=== PATIENT | male | born 1960 | race Caucasian/White ===

== ENCOUNTER 2016-03-29 08:24 | Emergency (ER) | payer MEDICARE ==
--- NOTE | 2016-03-29 09:15 | EKG REPORT ---
SEVERITY:- NORMAL ECG - SINUS RHYTHM : Confirmed by: Hemant De La O 29-Mar-2016 09:14:32
[2016-03-29 09:34] LABS: ABSOLUTE EOSINOPHILS # (AUTO) 0.2 10^3/uL (0.0-0.6); ABSOLUTE LYMPHOCYTES (AUTO) 1.1 10^3/uL (0.5-4.7); ABSOLUTE MONOCYTES (AUTO) 0.6 10^3/uL (0.1-1.4); ABSOLUTE NEUT (AUTO) 6.1 10^3/uL (1.7-8.2); BASOPHILS % (AUTO) 0.3 % (0-2); HEMATOCRIT 40.4 % (37.9-51.0); HEMOGLOBIN 13.4 g/dL (13.5-17.0); HGB HCT DIFFERENCE -0.2; LYMPHOCYTES % (AUTO) 14.2 % (13-45); MEAN CORPUSCULAR HEMOGLOBIN 30.7 pg (27.0-33.4); MEAN CORPUSCULAR HGB CONC 33.2 g/dL (32.0-36.0); MEAN CORPUSCULAR VOLUME 92 fl (80-97); MONOCYTES % (AUTO) 7.9 % (3-13); RED BLOOD COUNT 4.38 10^6/uL (4.35-5.55); RED CELL DISTRIBUTION WIDTH 13.1 % (11.5-14.0); SEGMENTED NEUTROPHILS % (AUTO) 75.6 % (42-78)
[2016-03-29 09:45] LABS: ANION GAP 12 (5-19); BLOOD UREA NITROGEN 18 mg/dL (7-20); CALCIUM 9.3 mg/dL (8.4-10.2); CARBON DIOXIDE 27 mmol/L (22-30); CHLORIDE 103 mmol/L (98-107); CREATININE RESULT 0.81 mg/dL (0.52-1.25); GLUCOSE 94 mg/dL (75-110); POTASSIUM 4.2 mmol/L (3.6-5.0); SODIUM 142.4 mmol/L (137-145)
--- NOTE | 2016-03-29 09:52 | ER Document Report ---
ED Cardiac <BUBBA OBREGON - Last Filed: 03/29/16 14:30> - General Mode of Arrival: Ambulatory Information source: Patient TRAVEL OUTSIDE OF THE [place] IN LAST 30 DAYS: No - HPI Patient complains to provider of: Chest pain Was the onset of pain: Sudden Quality of pain: Stabbing Chest pain radiation location: Back Associated symptoms: Shortness of breath Similar symptoms previously: Yes <ZEYNEP LORA - Last Filed: 03/29/16 16:14> - General Chief Complaint: Chest Pain Stated Complaint: CHEST PAIN Notes: Patient is a 55 year old male that presents to the emergency department today with complaints of chest pain x2-3 weeks. Patient states it has been intermittent for these few weeks and when it sets in, it lasts for a few hours at a time.Patient states he was "coon hunting" the other day, he bent over and had a stabbing chest pain with associated shortness of breath. Patient states again this morning at 0400 he was woken up with chest pain. Patient states it hurts to breathe. Patient's last cardiac catherization was more than five years ago. (ZEYNEP LORA) - Related Data Allergies/Adverse Reactions: No Known Allergies Allergy (Verified 03/29/16 08:36) Past Medical History - General Information source: Patient - Social History Smoking Status: Current Every Day Smoker Cigarette use (# per day): Yes Frequency of alcohol use: None Drug Abuse: None Lives with: Family Family History: Reviewed & Not Pertinent, CAD - Mother had an CA in her 50s. Father had an CA in his 60s., Other - Both parents had COPD Pulmonary Medical History: Reports: Hx Asthma GI Medical History: Reports: Hx Gastroesophageal Reflux Disease Musculoskeltal Medical History: Reports Hx Arthritis - osteo Psychiatric Medical History: Reports: Hx Depression Past Surgical History: Reports: Hx Cholecystectomy - Immunizations Hx Diphtheria, Pertussis, Tetanus Vaccination: No <ZEYNEP LORA - Last Filed: 03/29/16 16:14> Review of Systems - Review of Systems Constitutional: No symptoms reported EENT: No symptoms reported Cardiovascular: See HPI, Chest pain Respiratory: See HPI, Hurts to breathe, Short of breath Gastrointestinal: No symptoms reported Genitourinary: No symptoms reported Male Genitourinary: No symptoms reported Musculoskeletal: No symptoms reported Skin: No symptoms reported Hematologic/Lymphatic: No symptoms reported Neurological/Psychological: No symptoms reported -: Yes All other systems reviewed and negative <ZEYNEP LORA - Last Filed: 03/29/16 16:14> Physical Exam - General General appearance: Appears well In distress: None - HEENT Head: Normocephalic, Atraumatic Eyes: Normal Extraocular movements intact: Yes - Respiratory Respiratory status: No respiratory distress Chest status: Nontender Breath sounds: Normal - Cardiovascular Rhythm: Regular Heart sounds: Normal auscultation Murmur: No - Abdominal Inspection: Normal Distension: No distension Bowel sounds: Normal Tenderness: Nontender - Extremities General upper extremity: Normal inspection, Nontender. No: Edema General lower extremity: Normal inspection, Nontender. No: Edema - Neurological Neuro grossly intact: Yes Cognition: Normal Orientation: AAOx4 - Psychological Associated symptoms: Normal affect, Normal mood - Skin Skin Temperature: Warm Skin Moisture: Dry Skin Color: Normal <ZEYNEP LORA - Last Filed: 03/29/16 16:14> - Vital signs Vitals: Temp Pulse Resp BP Pulse Ox 97.5 F 95 18 141/93 H 100 03/29/16 08:32 03/29/16 08:32 03/29/16 08:32 03/29/16 08:32 03/29/16 08:32 (BUBBA OBREGON) (ZEYNEP LORA) Course - Laboratory Result Diagrams: 03/29/16 08:57 03/29/16 08:57 <BUBBA OBREGON - Last Filed: 03/29/16 14:30> - Laboratory Result Diagrams: 03/29/16 08:57 03/29/16 08:57 <ZEYNEP LORA - Last Filed: 03/29/16 16:14> - Re-evaluation Re-evalutation: 03/29/16 14:02 I personally performed the services described in the documentation, reviewed and edited the documentation which was dictated to my scribe in my presence, and it accurately records my words and actions. Patient presents emergency Department chief: Chest pain for 3 weeks. Patient states the pain has been there on a daily basis lasting several hours and then going away. He says the last 3 days the pain is been constant reproducible to deep breath sharp and stabbing in nature and feels like someone stabbed him with a knife. He said he got a little short of breath with it when he was cooing on the other day. He denies any exertional shortness of breath and she angina or shortness of breath on ED arrival. He has had he states 2 heart catheters in [place] and what he says is a stress test 6 months ago which were negative. 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 On physical examination his vital signs are stable he's afebrile not tachycardic not hypoxic or tachypneic. EKG 2 with sharp stabbing pain sinus rhythm at [address] segment elevation or depression. CT of the chest abdomen and pelvis with IV contrast showed questionable aortic root dilatation but no aneurysm dissection or secondary findings. Also no pulmonary emboli present. Laboratory evaluation with several days of constant chest pain is negative troponin. His tox screen is positive for narcotics and marijuana. Gave him a shot of Toradol that he wanted something for narcotics. I explained to him that this isn't the type of pain that we would treat with narcotic pain medication. He has chronic pain medication chronically at home says that he took extra on it helps when he took it explained to him I cannot give him additional narcotic pain medication for this. At this moment in time I do not feel this is an acute CA or unstable angina warranting admission however he is to return immediately for increasing worsening or new symptoms and would recommend one to 2 day follow-up with primary care physician for possible stress test evaluation. This was verbally discussed with him given discharge instructions and reasons for ED return sooner (BUBBA OBREGON) - Vital Signs Vital signs: Temp Pulse Resp BP Pulse Ox 98.1 F 95 15 119/90 H 99 03/29/16 14:01 03/29/16 08:32 03/29/16 14:01 03/29/16 14:01 03/29/16 13:01 (BUBBA OBREGON) (ZEYNEP LORA) - Laboratory Laboratory results interpreted by me: 03/29/16 08:57 Hgb 13.4 L (BUBBA OBREGON) (ZEYNEP LORA) Scribe Documentation - Scribe Written by Sergo:: Sergo Zacarias, [id number] (03/29/2016) acting as scribe for :: Dima <ZEYNEP LORA - Last Filed: 03/29/16 16:14>
[2016-03-29 10:08] LABS: CREATINE KINASE MB 0.33 ng/mL (<4.55)
[2016-03-29 10:08] LABS: URINE BARBITURATES SCREEN NEGATIVE; URINE METHADONE SCREEN NEGATIVE; URINE PHENCYCLIDINE SCREEN NEGATIVE
[2016-03-29 10:10] LABS: TROPONIN I < 0.012 ng/mL
[2016-03-29] MEDS ORDERED: KETOROLAC TROMETHAMINE 60 MG/2 ML SDV IM ONE (10:30)
[2016-03-29] MEDS ORDERED: ASPIRIN 81 MG TABLET, CHEWABLE PO ONE (13:01)
[2016-03-29 14:29] VITALS: BP 119/90
--- NOTE | 2016-03-29 22:03 | EKG REPORT ---
SEVERITY:- NORMAL ECG - SINUS RHYTHM : Confirmed by: Hemant De La O 29-Mar-2016 22:02:51
--- NOTE | 2016-04-09 10:59 | ER Document Report ---
Doctor's Note Notes: 04/09/16 10:59 diagnosis 1. chest pain nonspecific
== END 2016-03-29 14:25 | disposition home or self-care (01) ==
LOC: ER 08:24
DX: R07.9 Chest pain, unspecified (principal); F17.210 Nicotine dependence, cigarettes, uncomplicated
CPT/HCPCS: 93005; 99285; 96372; 36415; 82553; 85025; 80048; 84484; 83880; 71260; 74177; 93010; G0479; A9270; J1885; 80307

== ENCOUNTER → 2017-06-13 | Outpatient (CLI) | payer MEDICARE ==
--- NOTE | 2017-06-13 11:42 | RADIOLOGY REPORT (SQ) ---
EXAM DESCRIPTION: HIP RIGHT AP/LATERAL COMPLETED DATE/TIME: 06/13/2017 10:06 am REASON FOR STUDY: TROCHANTERIC BURSITIS, RIGHT HIP M70.61 TROCHANTERIC BURSITIS, RIGHT HIP M25.561 PAIN IN RIGHT KNEE M25.562 PAIN IN LEFT KNEE COMPARISON: None. NUMBER OF VIEWS: Two views. TECHNIQUE: AP pelvis and additional frog-leg view of the right hip. LIMITATIONS: None. FINDINGS: MINERALIZATION: Normal. RIGHT HIP: No fracture or dislocation. No worrisome bone lesions. LEFT HIP: No fracture or dislocation. No worrisome bone lesions. PUBIS AND ISCHIUM: No fracture. PELVIS: No fracture. SACRUM: No fracture or dislocation. No worrisome bone lesions. LOWER LUMBAR SPINE: No fracture or dislocation. No worrisome bone lesions. No significant disc disea se. SOFT TISSUES: No findings. OTHER: No other significant finding. IMPRESSION: NEGATIVE STUDY OF THE RIGHT HIP. NO RADIOGRAPHIC EVIDENCE OF ACUTE INJURY. TECHNICAL DOCUMENTATION: JOB ID: [id number] [employer]- All Rights Reserved Reading location - IP/workstation name: [email or web address]
--- NOTE | 2017-06-13 11:46 | RADIOLOGY REPORT (SQ) ---
EXAM DESCRIPTION: KNEE BILATERAL 1-2 VIEWS COMPLETED DATE/TIME: 06/13/2017 10:06 am REASON FOR STUDY: PAIN IN RIGHT KNEE,PAIN IN LEFT KNEE M70.61 TROCHANTERIC BURSITIS, RIGHT HIP M25. 561 PAIN IN RIGHT KNEE M25.562 PAIN IN LEFT KNEE COMPARISON: None. NUMBER OF VIEWS: Two views of each knee TECHNIQUE: AP and lateral bilateral knees. LIMITATIONS: None. FINDINGS: MINERALIZATION: Normal. RIGHT KNEE BONES: No acute fracture. No worrisome bone lesions. MEDIAL COMPARTMENT: No significant osteophytes. No joint space narrowing. No chondrocalcinosis. LATERAL COMPARTMENT: No significant osteophytes. No joint space narrowing. No chondrocalcinosis. LEFT KNEE BONES: No acute fracture. No worrisome bone lesions. MEDIAL COMPARTMENT: No significant osteophytes. No joint space narrowing. No chondrocalcinosis. LATERAL COMPARTMENT: No significant osteophytes. No joint space narrowing. No chondrocalcinosis. IMPRESSION: No significant findings. No acute fracture or dislocation. No significant degenerative changes. TECHNICAL DOCUMENTATION: JOB ID: [id number] [employer]- All Rights Reserved Reading location - IP/workstation name: [email or web address]
--- NOTE | 2017-06-13 12:03 | RADIOLOGY REPORT (SQ) ---
EXAM DESCRIPTION: C SP 6 OR MORE VIEWS COMPLETED DATE/TIME: 06/13/2017 10:06 am REASON FOR STUDY: CERVICALGIA M70.61 TROCHANTERIC BURSITIS, RIGHT HIP M25.561 PAIN IN RIGHT KNEE M 25.562 PAIN IN LEFT KNEE COMPARISON: MRI of the cervical spine and plain films of the cervical spine dated 04/24/2017 NUMBER OF VIEWS: Seven views. TECHNIQUE: AP, lateral, obliques, flexion, extension, and odontoid radiographic images acquired of t he cervical spine. LIMITATIONS: None. FINDINGS: MINERALIZATION: Normal. ALIGNMENT: There is very minimal retrolisthesis of C5 in relation to C6 FLEXION/EXTENSION: No instability. VERTEBRAE: Vertebral bodies of normal height. DISCS: No significant osteophytes or sclerosis. Disc height maintained. Disc spacer is now identifie d at the C6-C7 level. FORAMINA: No osteophytes or foraminal narrowing. LATERAL AND POSTERIOR ELEMENTS: Facets, lateral masses, and spinous processes without significant fin dings. HARDWARE: Disc spacer is identified at the C6-C7 level P SOFT TISSUES: No masses or calcifications. Lung apices clear. OTHER: No other significant finding. IMPRESSION: Postsurgical changes as noted above. There is very minimal retrolisthesis of C5 in rela tion to C 6. Other findings as noted above NO INSTABILITY ON FLEXION/EXTENSION. TECHNICAL DOCUMENTATION: JOB ID: [id number] [employer]- All Rights Reserved Reading location - IP/workstation name: [email or web address]
== END ==
LOC: OD 09:30
PROVIDERS: ATTEND Pain Medicine Pain Medicine
DX: M70.61 Trochanteric bursitis, right hip (principal); M25.561 Pain in right knee; M25.562 Pain in left knee; M54.2 Cervicalgia
CPT/HCPCS: 72052

== ENCOUNTER 2017-12-12 15:21 | Emergency (ER) | payer MEDICARE ==
[2017-12-12 17:16] VITALS: BP 132/85
[2017-12-12] MEDS ORDERED: ONDANSETRON HCL INJ/PF 4 MG/2 ML SDV IV ONE (17:16)
[2017-12-12] MEDS ORDERED: NORMAL SALINE 1000 ML 1,000 ML IV ONE (17:16)
--- NOTE | 2017-12-12 17:18 | ER Document Report ---
ED Medical Screen (RME) - General Chief Complaint: General Weakness Stated Complaint: POSSIBLE DEHYDRATION Time Seen by Provider: 12/12/17 17:16 Mode of Arrival: Ambulatory Information source: Patient Notes: Patient presents complaining of poor intake for the past week. Patient states that he has been working out in the heat and not drinking much. Patient states that he also has not been eating very much. Patient denies any abdominal pain. Patient denies any fever. Patient does report nausea vomiting and diarrhea. Patient vomited 2 and had diarrhea 2 today. Patient is concerned about dehydration. I have greeted and performed a rapid initial assessment of this patient. A comprehensive ED assessment and evaluation of the patient, analysis of test results and completion of the medical decision making process will be conducted by additional ED providers. TRAVEL OUTSIDE OF THE [place] IN LAST 30 DAYS: No - Related Data Allergies/Adverse Reactions: seafood Allergy (Uncoded 12/12/17 17:12) Past Medical History - Social History Chew tobacco use (# tins/day): No Frequency of alcohol use: Occasional Drug Abuse: None - Past Medical History Cardiac Medical History: Denies: Hx Coronary Artery Disease, Hx Heart Attack, Hx Hypertension Pulmonary Medical History: Reports: Hx Asthma Denies: Hx Bronchitis, Hx COPD, Hx Pneumonia Neurological Medical History: Denies: Hx Cerebrovascular Accident, Hx Seizures Renal/ Medical History: Denies: Hx Peritoneal Dialysis GI Medical History: Reports: Hx Gastroesophageal Reflux Disease Musculoskeltal Medical History: Reports Hx Arthritis - osteo Psychiatric Medical History: Reports: Hx Depression Past Surgical History: Reports: Hx Cardiac Catheterization, Hx Cholecystectomy - Immunizations Hx Diphtheria, Pertussis, Tetanus Vaccination: No Physical Exam - Vital signs Vitals: Temp Pulse Resp BP Pulse Ox 97.8 F 74 12 132/85 H 100 12/12/17 16:15 12/12/17 16:15 12/12/17 16:15 12/12/17 16:15 12/12/17 16:15 - Abdominal Inspection: Normal Tenderness: Nontender Course - Vital Signs Vital signs: Temp Pulse Resp BP Pulse Ox 97.8 F 74 12 132/85 H 100 12/12/17 16:15 12/12/17 16:15 12/12/17 16:15 12/12/17 16:15 12/12/17 16:15 Doctor's Discharge - Discharge Referrals: JOSE NEVILLE MD [Primary Care Provider] - Follow up as needed
== END 2017-12-12 18:50 | disposition left against medical advice (07) ==
LOC: ER 15:21
DX: R53.1 Weakness (principal); R11.2 Nausea with vomiting, unspecified; R19.7 Diarrhea, unspecified
CPT/HCPCS: 99281

== ENCOUNTER 2018-11-15 10:44 | Emergency (ER) | payer MEDICARE ==
[2018-11-15] MEDS ORDERED: KETOROLAC TROMETHAMINE INJ/PF 30 MG/1 ML SDV IV ONE (12:05)
[2018-11-15 12:24] LABS: ABSOLUTE EOSINOPHILS # (AUTO) 0.1 10^3/uL (0.0-0.6); ABSOLUTE LYMPHOCYTES (AUTO) 1.7 10^3/uL (0.5-4.7); ABSOLUTE MONOCYTES (AUTO) 0.4 10^3/uL (0.1-1.4); ABSOLUTE NEUT (AUTO) 4.2 10^3/uL (1.7-8.2); BASOPHILS % (AUTO) 0.5 % (0-2); EOSINOPHILS % (AUTO) 1.4 % (0-6); HEMATOCRIT 41.1 % (37.9-51.0); HEMOGLOBIN 13.8 g/dL (13.5-17.0); LYMPHOCYTES % (AUTO) 26.3 % (13-45); MEAN CORPUSCULAR HEMOGLOBIN 31.5 pg (27.0-33.4); MEAN CORPUSCULAR HGB CONC 33.5 g/dL (32.0-36.0); MEAN CORPUSCULAR VOLUME 94 fl (80-97); MONOCYTES % (AUTO) 5.8 % (3-13); PLATELET COUNT 246 10^3/uL (150-450); RED BLOOD COUNT 4.38 10^6/uL (4.35-5.55); RED CELL DISTRIBUTION WIDTH 13.4 % (11.5-14.0); TOTAL CELLS COUNTED % (AUTO) 100 %; WHITE BLOOD COUNT 6.4 10^3/uL (4.0-10.5)
--- NOTE | 2018-11-15 12:33 | RADIOLOGY REPORT (SQ) ---
EXAM DESCRIPTION: CT HEAD WITHOUT COMPLETED DATE/TIME: 11/15/2018 12:25 pm REASON FOR STUDY: fernandes COMPARISON: 06/17/2015 TECHNIQUE: Axial images acquired through the brain without intravenous contrast. Images reviewed wi th bone, brain and subdural windows. Additional sagittal and coronal reconstructions were generated. Images stored on PACS. All CT scanners at this facility use dose modulation, iterative reconstruction, and/or weight based d osing when appropriate to reduce radiation dose to as low as reasonably achievable (ALARA). [facility]: Dose Right [facility]: CareDose [facility]: Dose Right [facility]: Teradose 4D [facility]: Rollad RADIATION DOSE: CT Rad equipment meets quality standard of care and radiation dose reduction techniq ues were employed. CTDIvol: 48.6 mGy. DLP: 904 mGy-cm. mGy. LIMITATIONS: None. FINDINGS: VENTRICLES: Normal size and contour. CEREBRUM: No masses. No hemorrhage. No midline shift. No evidence for acute infarction. Normal gra y/white matter differentiation. No areas of low density in the white matter. CEREBELLUM: No masses. No hemorrhage. No alteration of density. No evidence for acute infarction. EXTRAAXIAL SPACES: No fluid collections. No masses. ORBITS AND GLOBE: No intra- or extraconal masses. Normal contour of globe without masses. CALVARIUM: No fracture. PARANASAL SINUSES: No fluid or mucosal thickening. SOFT TISSUES: No mass or hematoma. OTHER: No other significant finding. IMPRESSION: NORMAL BRAIN CT WITHOUT CONTRAST. EVIDENCE OF ACUTE STROKE: NO. COMMENT: Quality ID # [id number]: Final reports with documentation of one or more dose reduction techniques (e.g., Automated exposure control, adjustment of the mA and/or kV according to patient size, use of iterative reconstruction technique) TECHNICAL DOCUMENTATION: JOB ID: [id number] [employer]- All Rights Reserved Reading location - IP/workstation name: [email or web address] LICENSE OF [facility]
[2018-11-15 12:42] LABS: ALBUMIN 4.5 g/dL (3.5-5.0); ALKALINE PHOSPHATASE 42 U/L (38-126); ANION GAP 9 (5-19); ASPARTATE AMINO TRANSFERASE 21 U/L (17-59); BILIRUBIN,DIRECT 0.3 mg/dL (0.0-0.4); BILIRUBIN,TOTAL 0.9 mg/dL (0.2-1.3); BLOOD UREA NITROGEN 14 mg/dL (7-20); CALCIUM 9.4 mg/dL (8.4-10.2); CARBON DIOXIDE 28 mmol/L (22-30); CHLORIDE 100 mmol/L (98-107); GLUCOSE 104 mg/dL (75-110); POTASSIUM 4.4 mmol/L (3.6-5.0); TOTAL PROTEIN 7.4 g/dL (6.3-8.2)
--- NOTE | 2018-11-15 13:32 | ER Document Report ---
ED General - General Chief Complaint: Headache Stated Complaint: HEADACHE Time Seen by Provider: 11/15/18 11:49 Primary Care Provider: NIK OBREGON NP [Primary Care Provider] - Follow up as needed Mode of Arrival: Ambulatory Information source: Patient TRAVEL OUTSIDE OF THE [place] IN LAST 30 DAYS: No - HPI Notes: Patient presents complaint of headache. States that it feels like a vice gripping both sides of his head. It is moderate to severe. It does radiate throughout his head. Nothing made is made it better or worse. Says he has had no trauma. Says he did have a tick removed from his right side approximately 5 days ago. He said the headache started approximately 2 days after that. No rash. Some nausea but no vomiting. No fevers. The pain has been intermittent. He denies a previous history of headaches. - Related Data Allergies/Adverse Reactions: seafood Allergy (Uncoded 11/15/18 10:45) Past Medical History - General Information source: Patient - Social History Smoking Status: Former Smoker Frequency of alcohol use: None Drug Abuse: None Family History: Reviewed & Not Pertinent, CAD, Other Patient has suicidal ideation: No Patient has homicidal ideation: No - Past Medical History Cardiac Medical History: Denies: Hx Coronary Artery Disease, Hx Heart Attack, Hx Hypertension Pulmonary Medical History: Reports: Hx Asthma Denies: Hx Bronchitis, Hx COPD, Hx Pneumonia Neurological Medical History: Denies: Hx Cerebrovascular Accident, Hx Seizures Renal/ Medical History: Denies: Hx Peritoneal Dialysis GI Medical History: Reports: Hx Gastroesophageal Reflux Disease Musculoskeletal Medical History: Reports Hx Arthritis - osteo Psychiatric Medical History: Reports: Hx Depression Past Surgical History: Reports: Hx Cardiac Catheterization, Hx Cholecystectomy, Hx Orthopedic Surgery - neck, carpal tunnel - Immunizations Hx Diphtheria, Pertussis, Tetanus Vaccination: No Review of Systems - Review of Systems Constitutional: denies: Chills, Fever Cardiovascular: denies: Chest pain, Dyspnea Respiratory: denies: Cough, Short of breath -: Yes All other systems reviewed and negative Physical Exam - Vital signs Vitals: Temp Pulse Resp BP Pulse Ox 98.1 F 91 16 140/86 H 97 11/15/18 10:48 11/15/18 10:48 11/15/18 10:48 11/15/18 10:48 11/15/18 10:48 Interpretation: Normal - General General appearance: Appears well, Alert - HEENT Head: Normocephalic, Atraumatic Eyes: Normal Pupils: PERRL Neck: Normal. No: Meningismus - Respiratory Respiratory status: No respiratory distress Chest status: Nontender Breath sounds: Normal Chest palpation: Normal - Cardiovascular Rhythm: Regular Heart sounds: Normal auscultation Murmur: No - Abdominal Inspection: Normal Distension: No distension Bowel sounds: Normal Tenderness: Nontender Organomegaly: No organomegaly - Back Back: Normal, Nontender - Extremities General upper extremity: Normal inspection, Nontender, Normal color, Normal ROM, Normal temperature General lower extremity: Normal inspection, Nontender, Normal color, Normal ROM, Normal temperature, Normal weight bearing. 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 He has no meningismus or signs of meningitis. Vitals are stable. Laboratories are unremarkable. Head CT is also unremarkable. His neurological exam is normal. He does have a recent history of a tick bite. I will cover the patient with doxycycline for possible [place] spotted fever or other tickborne infections. His presentation does not seem consistent with a sentinel hemorrhage. - Vital Signs Vital signs: Temp Pulse Resp BP Pulse Ox 98.1 F 91 16 140/86 H 97 11/15/18 10:48 11/15/18 10:48 11/15/18 10:48 11/15/18 10:48 11/15/18 10:48 - Laboratory Result Diagrams: 11/15/18 11:32 11/15/18 11:32 Laboratory results interpreted by me: 11/15/18 11:32 Sodium 136.6 L - Diagnostic Test Radiology reviewed: Image reviewed, Reports reviewed Radiology results interpreted by me: 11/15/18 13:[address] 11/15/18 12:03 IMPRESSION: NORMAL BRAIN CT WITHOUT CONTRAST. EVIDENCE OF ACUTE STROKE: NO. Discharge - Discharge Clinical Impression: Tick bite Qualifiers: Encounter type: initial encounter Qualified Code(s): W57.XXXA - Bitten or stung by nonvenomous insect and other nonvenomous arthropods, initial encounter Headache Qualifiers: Headache type: unspecified Headache chronicity pattern: acute headache Intractability: intractable Qualified Code(s): R51 - Headache Condition: Stable Disposition: HOME, SELF-CARE Instructions: Headache ([facility]) Additional Instructions: Please call your family doctor as soon as possible to arrange follow-up Prescriptions: Doxycycline Hyclate 100 mg PO BID 14 Days #28 capsule Tramadol HCl [Ultram] 50 mg PO Q6 PRN 3 Days #12 tablet PRN Reason: Referrals: NIK OBREGON NP [Primary Care Provider] - Follow up in 3-5 days
[2018-11-15 14:45] VITALS: BP 134/78
== END 2018-11-15 14:22 | disposition home or self-care (01) ==
LOC: ER 10:44
DX: R51 Headache (principal); T14.8XXA Other injury of unspecified body region, initial encounter; W57.XXXA Bitten or stung by nonvenomous insect and other nonvenomous arthropods, initial encounter; J45.909 Unspecified asthma, uncomplicated; Z87.891 Personal history of nicotine dependence; Z91.013 Allergy to seafood
CPT/HCPCS: 36415; 85025; 80053; 86757 ×2; 70450; J1885; 99284

== ENCOUNTER 2018-11-20 13:14 | Observation (INO) | payer MEDICARE ==
[2018-11-20] MEDS ORDERED: NORMAL SALINE 1000 ML 1,000 ML IV ONE (13:16)
[2018-11-20] MEDS ORDERED: DOXYCYCLINE HYCLATE INJ 100 MG VIAL IV ONE (13:16)
--- NOTE | 2018-11-20 13:22 | ER Document Report ---
ED Medical Screen (RME) - General Stated Complaint: HEADACHE Time Seen by Provider: 11/20/18 13:15 Primary Care Provider: NIK OBREGON NP [Primary Care Provider] - Follow up as needed TRAVEL OUTSIDE OF THE [place] IN LAST 30 DAYS: No - HPI Notes: 11/20/18 13:42 58-year-old male to the emergency department with complaints of persistent headache, body aches, weakness, chest pain. He was seen last week for headache and tested for tickborne illness and empirically placed on doxycycline. His results were reviewed today it was found that he did have [place] spotted fever. He was called and patient states that he had not been doing well and so was urged to come back to the emergency department. He states that he has had subjective fevers, chills. He states last night he had episode of midsternal chest pain that was pretty severe but resolved on its own but then again he had another episode this morning. He has been taking the doxycycline that was written for him but he states that it is not helped. This would be the second time that he had [place] spotted fever. He did have a tick bite approximately 1-1/2 weeks ago to his right chest wall. It was removed and he did not have a rash at that time. He still does not have a rash. He states that his headache is in the back of his head and he has neck pain with it. He states that he has had surgery on his neck before that he is not really sure if his neck range of motion is significantly reduced and normal. Dr. Cabrera may be aware patient's impending arrival and asked that go ahead and order CBC, CMP, lactic acid, blood cultures, fluids, IV doxycycline. Given his history of chest pain and shortness of breath we will also add EKG chest x-ray and cardiac enzymes. I performed a medical screening exam on this patient. I have placed initial orders and will have main side colleague further evaluate patient and manage. On my exam patient appears chronically ill and is thin. He does not appear to have dann nuchal rigidity although he does have decreased range of motion in flexion. He does not appear toxic. Patient is aware of the plan and agrees. - Related Data Allergies/Adverse Reactions: No Known Drug Allergies Allergy (Verified 11/20/18 13:16) seafood Allergy (Uncoded 11/20/18 13:16) Past Medical History - Past Medical History Cardiac Medical History: Denies: Hx Coronary Artery Disease, Hx Heart Attack, Hx Hypertension Pulmonary Medical History: Reports: Hx Asthma Denies: Hx Bronchitis, Hx COPD, Hx Pneumonia Neurological Medical History: Denies: Hx Cerebrovascular Accident, Hx Seizures Renal/ Medical History: Denies: Hx Peritoneal Dialysis GI Medical History: Reports: Hx Gastroesophageal Reflux Disease Musculoskeltal Medical History: Reports Hx Arthritis - osteo Psychiatric Medical History: Reports: Hx Depression Past Surgical History: Reports: Hx Cardiac Catheterization, Hx Cholecystectomy, Hx Orthopedic Surgery - neck, carpal tunnel - Immunizations Hx Diphtheria, Pertussis, Tetanus Vaccination: No Physical Exam - Vital signs Vitals: Temp Pulse Resp BP Pulse Ox 98.1 F 69 16 147/73 H 99 11/20/18 13:17 11/20/18 13:17 11/20/18 13:17 11/20/18 13:17 11/20/18 13:17 Course - Vital Signs Vital signs: Temp Pulse Resp BP Pulse Ox 98.1 F 69 16 147/73 H 99 11/20/18 13:17 11/20/18 13:17 11/20/18 13:17 11/20/18 13:17 11/20/18 13:17 Doctor's Discharge - Discharge Referrals: NIK OBREGON NP [Primary Care Provider] - Follow up as needed
[2018-11-20 14:03] LABS: APPEARANCE,URINE CLEAR; BILIRUBIN,URINE NEGATIVE (NEGATIVE); COLOR,URINE YELLOW; GLUCOSE, URINE NEGATIVE (NEGATIVE); KETONES,URINE NEGATIVE (NEGATIVE); LEUKOCYTE ESTERASE,URINE NEGATIVE (NEGATIVE); NITRITE,URINE NEGATIVE (NEGATIVE); PROTEIN,URINE NEGATIVE (NEGATIVE); URINE SPECIFIC GRAVITY 1.028; UROBILINOGEN,URINE NEGATIVE mg/dL (<2.0)
[2018-11-20] MEDS ORDERED: ONDANSETRON HCL INJ/PF 4 MG/2 ML SDV IV ONE (14:04)
[2018-11-20] MEDS ORDERED: MORPHINE SULFATE 10 MG/ML INJ IV ONE (14:04)
--- NOTE | 2018-11-20 14:35 | ER Document Report ---
ED General - General Chief Complaint: Headache >24 hrs old Stated Complaint: HEADACHE Time Seen by Provider: 11/20/18 13:15 Primary Care Provider: NIK OBREGON NP [Primary Care Provider] - Follow up as needed Mode of Arrival: Ambulatory Information source: Patient TRAVEL OUTSIDE OF THE [place] IN LAST 30 DAYS: No - HPI Notes: Patient presents complaining of headache. It is bilateral and throbbing. It is constant and severe. Is worse with movement and better with rest. It does radiate across his head and into his neck. He is also had persistent nausea and generalized weakness. He states this is been going on for a little over 1 week. Patient was seen here approximately 1 week ago and at that time he had a presumed diagnosis of [place] spotted fever. He was started on doxycycline orally. He states he has taken it every day since then without missing a dose. He states there is been no change in his headache and that he feels weaker than when he started taking it. In the meantime his [place] spotted fever laboratories have come back positive. - Related Data Allergies/Adverse Reactions: No Known Drug Allergies Allergy (Verified 11/20/18 13:16) seafood Allergy (Uncoded 11/20/18 13:16) Past Medical History - General Information source: Patient - Social History Smoking Status: Current Every Day Smoker Frequency of alcohol use: None Drug Abuse: None Family History: Reviewed & Not Pertinent, CAD, Other Patient has suicidal ideation: No Patient has homicidal ideation: No - Past Medical History Cardiac Medical History: Denies: Hx Coronary Artery Disease, Hx Heart Attack, Hx Hypertension Pulmonary Medical History: Reports: Hx Asthma Denies: Hx Bronchitis, Hx COPD, Hx Pneumonia Neurological Medical History: Denies: Hx Cerebrovascular Accident, Hx Seizures Renal/ Medical History: Denies: Hx Peritoneal Dialysis GI Medical History: Reports: Hx Gastroesophageal Reflux Disease Musculoskeletal Medical History: Reports Hx Arthritis - osteo Psychiatric Medical History: Reports: Hx Depression Past Surgical History: Reports: Hx Cardiac Catheterization, Hx Cholecystectomy, Hx Orthopedic Surgery - neck, carpal tunnel - Immunizations Hx Diphtheria, Pertussis, Tetanus Vaccination: No Review of Systems - Review of Systems Constitutional: Malaise, Weakness Cardiovascular: Chest pain. denies: Dyspnea Respiratory: denies: Cough, Short of breath Gastrointestinal: Nausea, Poor appetite -: Yes All other systems reviewed and negative Physical Exam - Vital signs Vitals: Temp Pulse Resp BP Pulse Ox 98.1 F 69 16 147/73 H 99 11/20/18 13:17 11/20/18 13:17 11/20/18 13:17 11/20/18 13:17 11/20/18 13:17 Interpretation: Normal - General General appearance: Appears well, Alert - HEENT Head: Normocephalic, Atraumatic Eyes: Normal Pupils: PERRL - Respiratory Respiratory status: No respiratory distress Chest status: Nontender Breath sounds: Normal Chest palpation: Normal - Cardiovascular Rhythm: Regular Heart sounds: Normal auscultation Murmur: No - Abdominal Inspection: Normal Distension: No distension Bowel sounds: Normal Tenderness: Nontender Organomegaly: No organomegaly - Back Back: Normal, Nontender - Extremities General upper extremity: Normal inspection, Nontender, Normal color, Normal ROM, Normal temperature General lower extremity: Normal inspection, Nontender, Normal color, Normal ROM, Normal temperature, Normal weight bearing. No: Abigail's sign - Neurological Neuro grossly intact: Yes Cognition: Normal Orientation: AAOx4 Mobile Coma Scale Eye Opening: Spontaneous Uma Coma Scale Verbal: Oriented Mobile Coma Scale Motor: Obeys Commands Mobile Coma Scale Total: 15 Speech: Normal Motor strength normal: LUE, RUE, LLE, RLE Sensory: Normal - Psychological Associated symptoms: Normal affect, Normal mood - Skin Skin Temperature: Warm Skin Moisture: Dry Skin Color: Normal Course - Re-evaluation Re-evalutation: 11/20/18 16:43 Patient reevaluated at this time. He still complains of headache although states it is improved. Patient did have a positive antibody titer for [place] spotted fever. He does not have any meningismus. His vital signs are stable. Laboratories are otherwise unremarkable. Patient has not been improving with 6 days of outpatient doxycycline. He will be admitted for IV antibiotic therapy. - Vital Signs Vital signs: Temp Pulse Resp BP Pulse Ox 98.1 F 69 16 147/73 H 99 11/20/18 13:17 11/20/18 13:17 11/20/18 13:17 11/20/18 13:17 11/20/18 13:17 - Laboratory Result Diagrams: 11/20/18 14:40 11/20/18 14:40 Laboratory results interpreted by me: 11/20/18 11/20/18 14:40 14:40 RBC 4.03 L Hgb 12.6 L Hct 37.7 L Alkaline Phosphatase 31 L - Diagnostic Test Radiology reviewed: Image reviewed, Reports reviewed Radiology results interpreted by me: 11/20/18 16:43 Chest X-Ray 11/20/18 13:40 IMPRESSION: Hyperexpansion. No acute findings in the chest. - EKG Interpretation by Me EKG shows normal: Sinus rhythm Rate: Normal - 63 Rhythm: NSR [place]/QRS: No: Right axis deviation, Left axis deviation Discharge - Discharge Clinical Impression: [place] spotted fever Condition: Fair Disposition: ADMITTED INPATIENT Admitting Provider: day Unit Admitted: Medical Floor
--- NOTE | 2018-11-20 15:01 | RADIOLOGY REPORT (SQ) ---
EXAM DESCRIPTION: CHEST SINGLE VIEW COMPLETED DATE/TIME: 11/20/2018 2:52 pm REASON FOR STUDY: chest pain COMPARISON: 07/10/2015 NUMBER OF VIEWS: One view. TECHNIQUE: Single frontal radiographic image of the chest acquired. LIMITATIONS: None. FINDINGS: LUNGS AND PLEURA: Bilateral apical pleural thickening right greater than left. No consoli dation or effusions. Mild hyperexpansion. MEDIASTINUM AND HILAR STRUCTURES: Normal in appearance. HEART AND VASCULAR STRUCTURES: Normal in appearance. BONES: No acute findings. OTHER: No other significant finding. IMPRESSION: Hyperexpansion. No acute findings in the chest. TECHNICAL DOCUMENTATION: JOB ID: [id number] [employer]- All Rights Reserved Reading location - IP/workstation name: [email or web address]
[2018-11-20 15:13] LABS: ABSOLUTE LYMPHOCYTES (AUTO) 1.6 10^3/uL (0.5-4.7); ABSOLUTE MONOCYTES (AUTO) 0.3 10^3/uL (0.1-1.4); ABSOLUTE NEUT (AUTO) 3.5 10^3/uL (1.7-8.2); BASOPHILS % (AUTO) 0.3 % (0-2); EOSINOPHILS % (AUTO) 0.6 % (0-6); HEMATOCRIT 37.7 % (37.9-51.0); HEMOGLOBIN 12.6 g/dL (13.5-17.0); LYMPHOCYTES % (AUTO) 28.7 % (13-45); MEAN CORPUSCULAR HEMOGLOBIN 31.3 pg (27.0-33.4); MEAN CORPUSCULAR HGB CONC 33.5 g/dL (32.0-36.0); MEAN CORPUSCULAR VOLUME 94 fl (80-97); MONOCYTES % (AUTO) 5.6 % (3-13); PLATELET COUNT 219 10^3/uL (150-450); RED BLOOD COUNT 4.03 10^6/uL (4.35-5.55); RED CELL DISTRIBUTION WIDTH 13.6 % (11.5-14.0); SEGMENTED NEUTROPHILS % (AUTO) 64.8 % (42-78); TOTAL CELLS COUNTED % (AUTO) 100 %; WHITE BLOOD COUNT 5.5 10^3/uL (4.0-10.5)
[2018-11-20 15:39] LABS: ALBUMIN 4.6 g/dL (3.5-5.0); ALKALINE PHOSPHATASE 31 U/L (38-126); ANION GAP 7 (5-19); ASPARTATE AMINO TRANSFERASE 27 U/L (17-59); BILIRUBIN,DIRECT 0.3 mg/dL (0.0-0.4); BILIRUBIN,TOTAL 0.6 mg/dL (0.2-1.3); BLOOD UREA NITROGEN 18 mg/dL (7-20); CALCIUM 9.4 mg/dL (8.4-10.2); CARBON DIOXIDE 29 mmol/L (22-30); CHLORIDE 102 mmol/L (98-107); GLUCOSE 91 mg/dL (75-110); POTASSIUM 4.5 mmol/L (3.6-5.0); TOTAL PROTEIN 7.3 g/dL (6.3-8.2)
--- NOTE | 2018-11-20 17:27 | EKG REPORT ---
SEVERITY:- NORMAL ECG - SINUS RHYTHM : Confirmed by: Garth Ng MD 20-Nov-2018 17:27:27
--- NOTE | 2018-11-20 18:13 | PDOC H&P ---
History of Present Illness Admission Date/PCP: 11/20/18 16:59 NIK OBREGON NP 58-year-old male comes in with diagnosis of [place] spotted fever persistent headache. She was in the emergency room 5 days ago on 821 and at that time had positive [place] spotted fever IgG and a Rickettsia titer of 1-256. P atient was given p.o. doxycycline 100 mg twice daily. Patient's headache has persisted and when he called the emergency room they told him to come back in today for persistent headache. Patient has also had some nausea and vomiting but patient states that he is keeping his medicine down and not vomiting it up. A very important part of this history is the fact that 4 days prior to being here in the emergency room on the , he had an epidural steroid injection for cervical disc disease. Patient was having such a bad headache that he called the anesthesiologist but never got a call back. On the he came to the emergency room after having pulled a tick off of his back that time had a bad headache. Patient has had 2 lumbar laminectomies 1 cervical laminectomy and normally takes Vicodin for his postoperative pain. He says the Vicodin is not helping this headache. He does admit however that when he was here on the his headache was a 10 out of 10 but now he says his headache is a 5 out of 10. History of Present Illness: MARIANNE SHANNON is a 58 year old male Past Medical History Cardiac Medical History: Denies: Coronary Artery Disease, Myocardial Infarction, Hypertension Pulmonary Medical History: Reports: Asthma Denies: Bronchitis, Chronic Obstructive Pulmonary Disease (COPD), Pneumonia Neurological Medical History: Reports: Other - 2 lumbar laminectomies 1 cervical laminectomy Denies: Seizures GI Medical History: Reports: Gastroesophageal Reflux Disease Musculoskeltal Medical History: Reports: Arthritis - osteo Psychiatric Medical History: Reports: Depression Hematology: Denies: Anemia Past Surgical History Past Surgical History: Reports: Cardiac Catheterization, Cholecystectomy, Orthopedic Surgery - neck, carpal tunnel Social History Smoking Status: Current Every Day Smoker Frequency of Alcohol Use: None Hx Recreational Drug Use: No Drugs: None Hx Prescription Drug Abuse: No - Advance Directive Resuscitation Status: Full Code Family History Family History: Reviewed & Not Pertinent, CAD, Other Parental Family History Reviewed: No Children Family History Reviewed: No Sibling(s) Family History Reviewed.: No Medication/Allergy Home Medications: Baclofen [Baclofen 10 mg Tablet] 10 mg PO Q8HP PRN 11/20/18 Hydrocodone Bit/Acetaminophen [Hydrocodon-Acetaminophn 10-325] 1 tab PO 5XDP PRN 11/20/18 Ondansetron HCl [Zofran 4 mg Tablet] 4 mg PO DAILYP PRN 11/20/18 Oxycodone HCl/Acetaminophen [Endocet 10-325 mg Tablet] 1 tab PO Q6HP PRN 11/20/18 Tamsulosin HCl [Flomax 0.4 mg Cap.sr] 0.4 mg PO DAILY 11/20/18 Allergies/Adverse Reactions: No Known Drug Allergies Allergy (Verified 11/20/18 13:16) seafood Allergy (Uncoded 11/20/18 13:16) Review of Systems Constitutional: PRESENT: chills, headache(s), weight loss. ABSENT: fever(s), weight gain Respiratory: ABSENT: cough, hemoptysis Gastrointestinal: ABSENT: abdominal pain, constipation, diarrhea, hematemesis, hematochezia, nausea, vomiting Neurological: PRESENT: other - Headache starts in the occipital region goes to the vertex. He exhibits no nuchal rigidity. He denies photophobia. Physical Exam Vital Signs: Temp Pulse Resp BP Pulse Ox 98.0 F 76 18 153/80 H 99 11/20/18 17:23 11/20/18 17:23 11/20/18 17:23 11/20/18 17:23 11/20/18 17:23 Intake & Output 11/19/18 11/20/18 11/21/18 06:59 06:59 06:59 Intake Total 183 Balance 183 Weight 52 kg General appearance: PRESENT: no acute distress, other - Present Head exam: PRESENT: atraumatic, normocephalic Eye exam: PRESENT: conjunctiva pink, EOMI, PERRLA. ABSENT: scleral icterus Neck exam: PRESENT: other - Patient is able to turn his head from side to side patient is able to hyper flex and hyperextend his cervical spine. He does have some limited range of motion but this is because of surgery. ABSENT: carotid bruit, JVD, lymphadenopathy, thyromegaly Cardiovascular exam: PRESENT: RRR. ABSENT: diastolic murmur, rubs, systolic murmur GI/Abdominal exam: PRESENT: normal bowel sounds, soft. ABSENT: distended, guarding, mass, organolmegaly, rebound, tenderness Musculoskeletal exam: PRESENT: other - She does have a well-healed lumbar laminectomy scar from about L2-S1 Neurological exam: PRESENT: alert, awake, oriented to person, oriented to place, oriented to time, oriented to situation, CN II-XII grossly intact. ABSENT: motor sensory deficit Psychiatric exam: PRESENT: appropriate affect, normal mood. ABSENT: homicidal ideation, suicidal ideation Results Laboratory Results: 11/20/18 14:40 11/20/18 14:40 11/20/18 11/20/18 11/20/18 13:47 14:40 14:40 WBC 5.5 RBC 4.03 L Hgb 12.6 L Hct 37.7 L MCV 94 MCH 31.3 MCHC 33.5 RDW 13.6 Plt Count 219 Seg Neutrophils % 64.8 Sodium 137.8 Potassium 4.5 Chloride 102 Carbon Dioxide 29 Anion Gap 7 BUN 18 Creatinine 0.72 Est GFR ( Amer) > 60 Glucose 91 Lactic Acid Calcium 9.4 Total Bilirubin 0.6 AST 27 Alkaline Phosphatase 31 L Total Protein 7.3 Albumin 4.6 Urine Color YELLOW Urine Appearance CLEAR Urine pH 5.0 Ur Specific [place] 1.028 Urine Protein NEGATIVE Urine Glucose (UA) NEGATIVE Urine Ketones NEGATIVE Urine Blood NEGATIVE Urine Nitrite NEGATIVE Ur Leukocyte Esterase NEGATIVE Urine WBC (Auto) 1 Urine RBC (Auto) 1 11/20/18 14:40 WBC RBC Hgb Hct MCV MCH MCHC RDW Plt Count Seg Neutrophils % Sodium Potassium Chloride Carbon Dioxide Anion Gap BUN Creatinine Est GFR ( Amer) Glucose Lactic Acid 0.9 Calcium Total Bilirubin AST Alkaline Phosphatase Total Protein Albumin Urine Color Urine Appearance Urine pH Ur Specific [place] Urine Protein Urine Glucose (UA) Urine Ketones Urine Blood Urine Nitrite Ur Leukocyte Esterase Urine WBC (Auto) Urine RBC (Auto) 11/20/18 14:40 Troponin I < 0.012 Impressions: Chest X-Ray 11/20/18 13:40 IMPRESSION: Hyperexpansion. No acute findings in the chest. Assessment and Plan - Diagnosis (1) Spinal puncture headache Is this a current diagnosis for this admission?: Yes Plan: Patient had an epidural cervical injection 5 days coming to the emergency room the first time patient states that he tried calling the anesthesiologist who did the epidural out the headache but never got up with him. Patient states he is worse when he is up and about (2) [place] spotted fever Is this a current diagnosis for this admission?: Yes Plan: Patient definitely has [place] spotted fever with a positive IgG positive Rickettsia IgG antibody 1-256. Patient was put on p.o. doxycycline 100 mg twice daily on the .. Patient denies having fever but he has had chills patient denies ever having a rash. Patient did pull a tick off of his back about the same day he came into the emergency room. 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 Patient normally does not have headaches. Initially the patient describes headache as the top of his head in the back of his head and it was a 10 out of 10. He now describes a headache as a 5 out of 10 (4) Tick bite Qualifiers: Encounter type: initial encounter Qualified Code(s): W57.XXXA - Bitten or stung by nonvenomous insect and other nonvenomous arthropods, initial encounter Is this a current diagnosis for this admission?: Yes - Time Time Spent with patient: 25-34 minutes - I have called infectious disease in [place], and spoke to Dr. Mcgowan. We had a long conversation about treatment and care. I did tell her that I had not seen the patient prior to talking to her. She said if there is any suspicion of meningitis that the patient should be tapped. She said the headache could be from the [place] spotted fever or it could be coming from meningitis unrelated to the [place] spotted fever. She said she would be glad to help with the patient failed to improve her we needed further consultation. After talking to the patient getting history that he had just had an epidural injection 5 days before he presented here I think that part of his headache or all of his headache may be coming from the potential spinal leak from the epidural injection. Patient does not look septic or toxic patient does not look like he has meningitis. Therefore I am going to just treat him with IV doxy follow his labs if he fails to improve or worsens would recommend lumbar puncture. The other possibility is that if he fails to improve a blood patch being performed in the next 48 hours. One thing complicating matters although not drastically is that he has had a laminectomy in the lumbar region x2 which would create a lot of scar tissue if one was to do the LP. I explained all this to the patient is in agreement to be admitted strict bedrest flat no higher than 30 degrees, I use morphine IV for his head ache, IV fluids, and continue with IV doxycycline
[2018-11-20] MEDS ORDERED: ACETAMINOPHEN 325 MG TABLET PO PRN (18:15)
[2018-11-20] MEDS ORDERED: ONDANSETRON 4 MG TAB.RAPDIS PO PRN (18:15)
[2018-11-20 18:37] LABS: INTERNATIONAL RATION (INR) 0.97; PROTHROMBIN TIME 12.9 SEC (11.4-15.4)
[2018-11-20] MEDS: MORPHINE SULFATE 10 MG/ML INJ IV PRN (20:36)
[2018-11-20] MEDS: NORMAL SALINE 1000 ML 1,000 ML IV PRN (20:38)
[2018-11-20] MEDS: DOXYCYCLINE HYCLATE 100 MG in DEXTROSE 5%-WATER 250 ML IV SCH (22:07)
[2018-11-20] MEDS: FAMOTIDINE 20 MG TABLET PO SCH (22:33)
[2018-11-20] MEDS: ENOXAPARIN SODIUM INJ 40 MG/0.4 ML DISP.SYRIN SUBCUT SCH (22:33)
[2018-11-20] MEDS ORDERED: TAMSULOSIN HCL 0.4 MG CAP.SR.24H PO ONE (23:30)
[2018-11-21] MEDS: MORPHINE SULFATE 10 MG/ML INJ IV PRN ×4 (01:19→20:11)
[2018-11-21] MEDS: ZOLPIDEM TARTRATE 5 MG TABLET PO PRN ×2 (01:20→21:19)
[2018-11-21 05:27] LABS: ABSOLUTE EOSINOPHILS # (AUTO) 0.1 10^3/uL (0.0-0.6); ABSOLUTE LYMPHOCYTES (AUTO) 2.3 10^3/uL (0.5-4.7); ABSOLUTE MONOCYTES (AUTO) 0.4 10^3/uL (0.1-1.4); ABSOLUTE NEUT (AUTO) 3.4 10^3/uL (1.7-8.2); BASOPHILS % (AUTO) 0.3 % (0-2); HEMATOCRIT 33.3 % (37.9-51.0); HEMOGLOBIN 11.3 g/dL (13.5-17.0); LYMPHOCYTES % (AUTO) 37.2 % (13-45); MEAN CORPUSCULAR HEMOGLOBIN 31.7 pg (27.0-33.4); MEAN CORPUSCULAR HGB CONC 33.9 g/dL (32.0-36.0); MEAN CORPUSCULAR VOLUME 93 fl (80-97); MONOCYTES % (AUTO) 6.3 % (3-13); PLATELET COUNT 188 10^3/uL (150-450); RED BLOOD COUNT 3.57 10^6/uL (4.35-5.55); RED CELL DISTRIBUTION WIDTH 13.3 % (11.5-14.0); SEGMENTED NEUTROPHILS % (AUTO) 55.2 % (42-78); TOTAL CELLS COUNTED % (AUTO) 100 %; WHITE BLOOD COUNT 6.2 10^3/uL (4.0-10.5)
[2018-11-21 05:48] LABS: BLOOD UREA NITROGEN 11 mg/dL (7-20); CALCIUM 8.5 mg/dL (8.4-10.2); GLUCOSE 84 mg/dL (75-110); PHOSPHORUS 3.7 mg/dL (2.5-4.5); POTASSIUM 4.4 mmol/L (3.6-5.0)
[2018-11-21 05:53] LABS: ANION GAP 5 (5-19); CARBON DIOXIDE 27 mmol/L (22-30); CHLORIDE 106 mmol/L (98-107)
[2018-11-21] MEDS: NORMAL SALINE 1000 ML 1,000 ML IV PRN ×3 (06:41→21:21)
[2018-11-21] MEDS: DOCUSATE SODIUM 100 MG CAPSULE PO SCH (09:28)
[2018-11-21] MEDS: FAMOTIDINE 20 MG TABLET PO SCH ×2 (09:34→21:16)
[2018-11-21] MEDS: DOXYCYCLINE HYCLATE 100 MG in DEXTROSE 5%-WATER 250 ML IV SCH ×2 (09:34→21:16)
[2018-11-21] MEDS: ENOXAPARIN SODIUM INJ 40 MG/0.4 ML DISP.SYRIN SUBCUT SCH (09:36)
[2018-11-21] MEDS: ONDANSETRON HCL INJ/PF 4 MG/2 ML SDV IV PRN ×2 (09:36→11:38)
[2018-11-21] MEDS: KETOROLAC TROMETHAMINE INJ/PF 30 MG/1 ML SDV IV SCH ×2 (12:06→17:10)
--- NOTE | 2018-11-21 14:47 | PDOC PROGRESS REPORT ---
Subjective Progress Note for:: 11/21/18 Subjective:: No adverse events overnight. He says his chief complaint is his headache. He says he feels like he is not getting any better. He says if it was not for the headache he would feel fine. We gave him some Toradol and he says it has not really done much for him. He says that the other medications he was getting for his headache were not really helping him either. He is been afebrile. He does not have any neck tightness or stiffness. No photophobia. Reason For Visit: [place] SPOTTED FEVER, HEADACHE, SPINAL TAP Physical Exam Vital Signs: Temp Pulse Resp BP Pulse Ox 98.4 F 67 16 133/76 H 96 11/21/18 07:35 11/21/18 07:35 11/21/18 07:35 11/21/18 07:35 11/21/18 07:35 Intake & Output 11/20/18 11/21/18 11/22/18 06:59 06:59 06:59 Intake Total 2550 250 Output Total 705 Balance 1845 250 Weight 52.8 kg General appearance: PRESENT: no acute distress, cooperative, disheveled, thin Respiratory exam: PRESENT: clear to auscultation williams, symmetrical, unlabored. ABSENT: accessory muscle use, chest wall tenderness, crackles, prolonged expiratory phas, rhonchi, tachypnea, wheezes Cardiovascular exam: PRESENT: RRR, +S1, +S2 Pulses: PRESENT: normal carotid pulses Vascular exam: PRESENT: normal capillary refill GI/Abdominal exam: PRESENT: normal bowel sounds, soft. ABSENT: distended, guarding, rebound, tenderness Extremities exam: ABSENT: clubbing, pedal edema Musculoskeletal exam: PRESENT: normal inspection. ABSENT: deformity Neurological exam: PRESENT: alert, awake, oriented to person, oriented to place, oriented to time, oriented to situation, CN II-XII grossly intact. ABSENT: mo tor sensory deficit Psychiatric exam: PRESENT: appropriate affect, normal mood Skin exam: PRESENT: dry, warm Results Laboratory Results: 11/21/18 04:27 11/21/18 04:27 11/20/18 11/20/18 11/20/18 14:40 14:40 14:40 WBC 5.5 RBC 4.03 L Hgb 12.6 L Hct 37.7 L MCV 94 MCH 31.3 MCHC 33.5 RDW 13.6 Plt Count 219 Seg Neutrophils % 64.8 Sodium 137.8 Potassium 4.5 Chloride 102 Carbon Dioxide 29 Anion Gap 7 BUN 18 Creatinine 0.72 Est GFR ( Amer) > 60 Glucose 91 Lactic Acid 0.9 Calcium 9.4 Phosphorus Magnesium Total Bilirubin 0.6 AST 27 Alkaline Phosphatase 31 L Total Protein 7.3 Albumin 4.6 TSH 11/20/18 11/21/18 11/21/18 14:40 04:27 04:27 WBC 6.2 RBC 3.57 L Hgb 11.3 L Hct 33.3 L MCV 93 MCH 31.7 MCHC 33.9 RDW 13.3 Plt Count 188 Seg Neutrophils % 55.2 Sodium 138.4 Potassium 4.4 Chloride 106 Carbon Dioxide 27 Anion Gap 5 BUN 11 Creatinine 0.70 Est GFR ( Amer) > 60 Glucose 84 Lactic Acid Calcium 8.5 Phosphorus 3.7 Magnesium 1.8 Total Bilirubin AST Alkaline Phosphatase Total Protein Albumin TSH 1.57 11/20/18 14:40 Troponin I < 0.012 Impressions: Chest X-Ray 11/20/18 13:40 IMPRESSION: Hyperexpansion. No acute findings in the chest. Assessment and Plan - Diagnosis (1) [place] spotted fever Is this a current diagnosis for this admission?: Yes Plan: Continue doxycycline, he needs a total of at least 7 days (2) Headache Qualifiers: Headache type: unspecified Headache chronicity pattern: acute headache Intractability: intractable Qualified Code(s): R51 - Headache Is this a current diagnosis for this admission?: Yes Plan: He said he had an epidural injection, so the dura should not have been punctured. He does not have any meningeal signs or systemic signs to suggest meningitis. I have given him some Toradol. If that does not work, I may try a triptan. There is a possibility that this could be a "steroid headache" but I would have expected that to have let up within several hours of the injection. He has cervical disc disease, and so we might want to consider a muscle relaxer as well. - Time Time Spent with patient: 15-24 minutes
[2018-11-21] MEDS: TAMSULOSIN HCL 0.4 MG CAP.SR.24H PO SCH (21:16)
[2018-11-22] MEDS: KETOROLAC TROMETHAMINE INJ/PF 30 MG/1 ML SDV IV SCH ×4 (01:01→17:50)
[2018-11-22] MEDS: MORPHINE SULFATE 10 MG/ML INJ IV PRN ×5 (01:28→21:03)
[2018-11-22] MEDS: NORMAL SALINE 1000 ML 1,000 ML IV PRN ×2 (06:23→21:00)
[2018-11-22 07:13] LABS: ABSOLUTE EOSINOPHILS # (AUTO) 0.1 10^3/uL (0.0-0.6); ABSOLUTE LYMPHOCYTES (AUTO) 1.9 10^3/uL (0.5-4.7); ABSOLUTE MONOCYTES (AUTO) 0.4 10^3/uL (0.1-1.4); ABSOLUTE NEUT (AUTO) 2.5 10^3/uL (1.7-8.2); BASOPHILS % (AUTO) 0.4 % (0-2); EOSINOPHILS % (AUTO) 1.3 % (0-6); HEMATOCRIT 31.6 % (37.9-51.0); HEMOGLOBIN 10.8 g/dL (13.5-17.0); LYMPHOCYTES % (AUTO) 38.2 % (13-45); MEAN CORPUSCULAR HEMOGLOBIN 31.7 pg (27.0-33.4); MEAN CORPUSCULAR HGB CONC 34.2 g/dL (32.0-36.0); MEAN CORPUSCULAR VOLUME 93 fl (80-97); MONOCYTES % (AUTO) 7.8 % (3-13); PLATELET COUNT 179 10^3/uL (150-450); RED BLOOD COUNT 3.41 10^6/uL (4.35-5.55); RED CELL DISTRIBUTION WIDTH 13.5 % (11.5-14.0); SEGMENTED NEUTROPHILS % (AUTO) 52.3 % (42-78); TOTAL CELLS COUNTED % (AUTO) 100 %; WHITE BLOOD COUNT 4.9 10^3/uL (4.0-10.5)
[2018-11-22 07:34] LABS: ANION GAP 5 (5-19); BLOOD UREA NITROGEN 11 mg/dL (7-20); CALCIUM 8.3 mg/dL (8.4-10.2); CARBON DIOXIDE 26 mmol/L (22-30); CHLORIDE 107 mmol/L (98-107); GLUCOSE 87 mg/dL (75-110); POTASSIUM 4.1 mmol/L (3.6-5.0)
[2018-11-22] MEDS: DOCUSATE SODIUM 100 MG CAPSULE PO SCH (09:51)
[2018-11-22] MEDS: ONDANSETRON HCL INJ/PF 4 MG/2 ML SDV IV PRN (09:54)
[2018-11-22] MEDS: ENOXAPARIN SODIUM INJ 40 MG/0.4 ML DISP.SYRIN SUBCUT SCH (09:54)
[2018-11-22] MEDS: FAMOTIDINE 20 MG TABLET PO SCH ×2 (09:54→21:02)
[2018-11-22] MEDS: DOXYCYCLINE HYCLATE 100 MG in DEXTROSE 5%-WATER 250 ML IV SCH ×2 (09:56→21:00)
[2018-11-22] MEDS ORDERED: SUMATRIPTAN SUCCINATE 100 MG TABLET PO ONE (11:00)
[2018-11-22] MEDS ORDERED: PROMETHAZINE HCL INJ 25 MG/1 ML VIAL IV PRN (15:37)
--- NOTE | 2018-11-22 16:49 | PDOC PROGRESS REPORT ---
Subjective Progress Note for:: 11/22/18 Subjective:: No adverse events overnight. No new complaints. He still has a headache. No fevers. No photophobia. No neck stiffness. He said the headaches not as bad as it was when he first started his antibiotics but it just will not go away. He said he take some pain medicine and it feels like it gets better for a little while but then it comes back. Reason For Visit: [place] SPOTTED FEVER, HEADACHE, SPINAL TAP Physical Exam Vital Signs: Temp Pulse Resp BP Pulse Ox 98.2 F 56 L 18 140/76 H 98 11/22/18 15:27 11/22/18 15:27 11/22/18 15:27 11/22/18 15:27 11/22/18 15:27 Intake & Output 11/21/18 11/22/18 11/23/18 06:59 06:59 06:59 Intake Total 2550 4475 840 Output Total 705 500 Balance 1845 3975 840 Weight 52.8 kg 53 kg General appearance: PRESENT: no acute distress, cooperative, disheveled, thin Respiratory exam: PRESENT: clear to auscultation williams, symmetrical, unlabored. ABSENT: accessory muscle use, chest wall tenderness, crackles, prolonged expiratory phas, rhonchi, tachypnea, wheezes Cardiovascular exam: PRESENT: RRR, +S1, +S2 Pulses: PRESENT: normal carotid pulses Vascular exam: PRESENT: normal capillary refill GI/Abdominal exam: PRESENT: normal bowel sounds, soft. ABSENT: distended, guarding, rebound, tenderness Extremities exam: ABSENT: clubbing, pedal edema Musculoskeletal exam: PRESENT: normal inspection. ABSENT: deformity Neurological exam: PRESENT: alert, awake, oriented to person, oriented to place, oriented to time, oriented to situation, CN II-XII grossly intact. ABSENT: motor sensory deficit Psychiatric exam: PRESENT: appropriate affect, normal mood Skin exam: PRESENT: dry, warm Results Laboratory Results: 11/22/18 06:44 11/22/18 06:44 11/22/18 11/22/18 06:44 06:44 WBC 4.9 RBC 3.41 L Hgb 10.8 L Hct 31.6 L MCV 93 MCH 31.7 MCHC 34.2 RDW 13.5 Plt Count 179 Seg Neutrophils % 52.3 Sodium 137.6 Potassium 4.1 Chloride 107 Carbon Dioxide 26 Anion Gap 5 BUN 11 Creatinine 0.75 Est GFR ( Amer) > 60 Glucose 87 Calcium 8.3 L 11/20/18 14:40 Troponin I < 0.012 Impressions: Chest X-Ray 11/20/18 13:40 IMPRESSION: Hyperexpansion. No acute findings in the chest. Assessment and Plan - Diagnosis (1) [place] spotted fever Is this a current diagnosis for this admission?: Yes Plan: Continue doxycycline, he needs a total of at least 7 days (2) Headache Qualifiers: Headache type: unspecified Headache chronicity pattern: acute headache Intractability: intractable Qualified Code(s): R51 - Headache Is this a current diagnosis for this admission?: Yes Plan: He shows no meningeal signs. Suspect that this is due to the [place] spotted fever. Ordered some Imitrex form and it did seem to help him some today. I told him that he will likely go home tomorrow, and he may still have a bit of a headache when he leaves. - Time Time Spent with patient: 15-24 minutes
[2018-11-22] MEDS ORDERED: BACLOFEN 20 MG TABLET PO PRN (21:00)
[2018-11-22] MEDS: TAMSULOSIN HCL 0.4 MG CAP.SR.24H PO SCH (21:02)
--- NOTE | 2018-11-22 21:05 | Progress Note ---
Provider Note Provider Note: ID Telephone Consultation Note Asked to review patient's chart. Pt not seen or examined. Mr. Abraham is a 58 year old man with PMH including asthma, GERD, and prior cervical laminectomy. 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 He was admitted to [facility] on 11/20/18 for complaint of severe occipital headache with associated nausea and generalized weakness for a week and no photophobia or neck stiffness. He first presented to the [facility] ED for this same problem on 11/15, at which time he disclosed a recent tick bite and was prescribed empiric PO doxycycline to cover tick borne illnesses. After his RMSF IgG returned positive with titer of 1:256, he was contacted by an ED provider and instructed to return to the hospital when he disclosed that his symptoms persisted despite taking doxycycline. On presentation, he was noted to have a nontoxic appearance, no rash, no fever, a well healed lumbar laminectomy scar, some limitation to neck ROM attributed to prior cervical spine surgery and no dann nuchal rigidity. Review of recent labs on 11/15 and 11/20 also includes normal WBC count, no thrombocytopenia, no elevation in transaminases, and no significant hyponatremia. Impression Doubt that the patient has current RMSF infection. Presumptive diagnosis of RMSF is made on based on tick exposure history, which the patient has, coupled with a constellation of typical clinical features, which the patient lacks. He has no fever, thrombocytopenia, transaminitis, or hyponatremia. He has had no maculopapular/petechial rash develop. The patient's lack of response on doxycycline also argues against RMSF. If recognized early (within the first 5 days), there is usually improvement on doxycycline. A single positive IgG titer is also not enough to establish the diagnosis of RMSF. Definitive diagnosis depends on paired sera - whether there was a 4x increase in acute vs convalescent IgG titers. A single positive IgG result can remain for months to years following RMSF. False-positive IgG results can also be due to cross-reactivity from exposure to related but nonpathogenic rickettsial species carried by ticks. Recommendations Would stop doxycycline as the patient's presentation is not suggestive of current RMSF infection. Doxycycline can also have adverse effects of nausea and headache. While it would not account for the patient's initial presentation, continuing doxycycline at this point is not likely to help and could potentially confound. Jose Díaz MD [facility] Infectious Diseases pager [phone]
[2018-11-23] MEDS: KETOROLAC TROMETHAMINE INJ/PF 30 MG/1 ML SDV IV SCH ×3 (00:12→12:17)
[2018-11-23] MEDS: ZOLPIDEM TARTRATE 5 MG TABLET PO PRN (00:12)
[2018-11-23 05:17] LABS: ABSOLUTE EOSINOPHILS # (AUTO) 0.1 10^3/uL (0.0-0.6); ABSOLUTE MONOCYTES (AUTO) 0.4 10^3/uL (0.1-1.4); ABSOLUTE NEUT (AUTO) 4.5 10^3/uL (1.7-8.2); BASOPHILS % (AUTO) 0.3 % (0-2); EOSINOPHILS % (AUTO) 1.3 % (0-6); HEMOGLOBIN 11.8 g/dL (13.5-17.0); LYMPHOCYTES % (AUTO) 28.3 % (13-45); MEAN CORPUSCULAR HEMOGLOBIN 32.3 pg (27.0-33.4); MEAN CORPUSCULAR HGB CONC 34.7 g/dL (32.0-36.0); MEAN CORPUSCULAR VOLUME 93 fl (80-97); MONOCYTES % (AUTO) 5.9 % (3-13); PLATELET COUNT 200 10^3/uL (150-450); RED BLOOD COUNT 3.66 10^6/uL (4.35-5.55); RED CELL DISTRIBUTION WIDTH 13.1 % (11.5-14.0); SEGMENTED NEUTROPHILS % (AUTO) 64.2 % (42-78); TOTAL CELLS COUNTED % (AUTO) 100 %
[2018-11-23 05:36] LABS: BLOOD UREA NITROGEN 10 mg/dL (7-20); CALCIUM 8.9 mg/dL (8.4-10.2); GLUCOSE 87 mg/dL (75-110); POTASSIUM 4.1 mmol/L (3.6-5.0)
[2018-11-23 05:42] LABS: ANION GAP 7 (5-19); CARBON DIOXIDE 26 mmol/L (22-30); CHLORIDE 107 mmol/L (98-107)
[2018-11-23] MEDS: MORPHINE SULFATE 10 MG/ML INJ IV PRN (06:15)
[2018-11-23] MEDS: NORMAL SALINE 1000 ML 1,000 ML IV PRN ×2 (06:15→08:30)
[2018-11-23] MEDS: ONDANSETRON HCL INJ/PF 4 MG/2 ML SDV IV PRN (09:42)
[2018-11-23] MEDS: DOXYCYCLINE HYCLATE 100 MG in DEXTROSE 5%-WATER 250 ML IV SCH (09:43)
[2018-11-23] MEDS: DOCUSATE SODIUM 100 MG CAPSULE PO SCH (09:44)
[2018-11-23] MEDS: ENOXAPARIN SODIUM INJ 40 MG/0.4 ML DISP.SYRIN SUBCUT SCH (09:44)
[2018-11-23] MEDS: FAMOTIDINE 20 MG TABLET PO SCH ×2 (09:44→09:46)
[2018-11-23 11:57] VITALS: BP 159/76
--- NOTE | 2018-11-23 16:59 | PDOC DISCHARGE SUMMARY ---
General - Admit/Disc Date/PCP Admission Date/Primary Care Provider: 11/20/18 16:59 NIK OBREGON NP Discharge Date: 11/23/18 - Discharge Diagnosis (1) Radford spotted fever Is this a current diagnosis for this admission?: Yes Summary: This was initially working diagnosis, infectious disease was consulted and determined that while he had been exposed to it in the past, it was not felt that this was the likely explanation for the patient's current presentation. They recommended stopping doxycycline, which we did. (2) Headache Is this a current diagnosis for this admission?: Yes Summary: Had a lot of features of a tension headache, but most of the conventional treatments were not terribly effective. I did give him a dose of Imitrex wants some other treatments had failed, and this seemed to help him out the most. He had a recent negative head CT about a week ago. The headache was present at that time. It was also worse then. - Additional Information Resuscitation Status: Full Code Discharge Diet: As Tolerated Discharge Activity: Activity As Tolerated, Balance Activity w/Rest Prescriptions: Sumatriptan Succinate [Imitrex 100 Mg Tablet] 100 mg PO DAILYP PRN #10 tablet PRN Reason: headache Ondansetron HCl [Zofran 4 mg Tablet] 1 tab PO Q4H PRN #30 tablet PRN Reason: Home Medications: Baclofen [Baclofen 10 mg Tablet] 10 mg PO Q8HP PRN 11/20/18 Hydrocodone Bit/Acetaminophen [Hydrocodon-Acetaminophn 10-325] 1 tab PO 5XDP PRN 11/20/18 Ondansetron HCl [Zofran 4 mg Tablet] 4 mg PO DAILYP PRN 11/20/18 Tamsulosin HCl [Flomax 0.4 mg Cap.sr] 0.4 mg PO DAILY 11/20/18 Ondansetron HCl [Zofran 4 mg Tablet] 1 tab PO Q4H PRN #30 tablet 11/23/18 Sumatriptan Succinate [Imitrex 100 Mg Tablet] 100 mg PO DAILYP PRN #10 tablet 11/23/18 History of Present Illness History of Present Illness: MARIANNE SHANNON is a 58 year old male comes in with diagnosis of Samson spotted fever persistent headache. She was in the emergency room 5 days ago on 821 and at that time had positive Radford spotted fever IgG and a Rickettsia titer of 1-256. Patient was given p.o. doxycycline 100 mg twice daily. Patient's headache has persisted and when he called the emergency room they told him to come back in today for persistent headache. Patient has also had some nausea and vomiting but patient states that he is keeping his medicine down and not vomiting it up. A very important part of this history is the fact that 4 days prior to being here in the emergency room on the , he had an epidural steroid injection for cervical disc disease. Patient was having such a bad headache that he called the anesthesiologist but never got a call back. On the he came to the emergency room after having pulled a tick off of his back that time had a bad headache. Patient has had 2 lumbar laminectomies 1 cervical laminectomy and normally takes Vicodin for his postoperative pain. He says the Vicodin is not helping this headache. He does admit however that when he was here on the his headache was a 10 out of 10 but now he says his headache is a 5 out of 10. Hospital Course Hospital Course: He was kept on doxycycline but infectious disease was consulted and decided this was not an acute infection and recommended discontinuing doxycycline and so we did. He had a head CT done on about a week ago when his headache was worse and that was negative. We tried several treatments to help but it did not seem like anything was working very well for him. I then tried a dose of Imitrex and it seemed to help him out fairly well. He said now it is to sort of a dull ache and is improved. He is not having any more nausea or vomiting. I told him that he should take some ibuprofen at the sign of a headache, and that if he has to take Imitrex more than 2 days in a row then he needs to call his doctor for an evaluation. He verbalizes understanding. His labs and examination were reassuring and he was discharged in good condition. Physical Exam Vital Signs: Temp Pulse Resp BP Pulse Ox 98.9 F 66 13 159/76 H 99 11/23/18 11:33 11/23/18 11:33 11/23/18 11:33 11/23/18 11:33 11/23/18 11:33 Intake & Output 11/22/18 11/23/18 11/24/18 06:59 06:59 06:59 Intake Total 4475 4110 588 Output Total 500 250 Balance 3970 2725 588 Weight 53 kg 54 kg General appearance: PRESENT: no acute distress, cooperative, disheveled, thin Respiratory exam: PRESENT: clear to auscultation williams, symmetrical, unlabored. ABSENT: accessory muscle use, chest wall tenderness, crackles, prolonged expiratory phas, rhonchi, tachypnea, wheezes Cardiovascular exam: PRESENT: RRR, +S1, +S2 Pulses: PRESENT: normal carotid pulses Vascular exam: PRESENT: normal capillary refill GI/Abdominal exam: PRESENT: normal bowel sounds, soft. ABSENT: distended, guarding, rebound, tenderness Extremities exam: ABSENT: clubbing, pedal edema Musculoskeletal exam: PRESENT: normal inspection. ABSENT: deformity Neurological exam: PRESENT: alert, awake, oriented to person, oriented to place, oriented to time, oriented to situation, CN II-XII grossly intact. ABSENT: motor sensory deficit Psychiatric exam: PRESENT: appropriate affect, normal mood Skin exam: PRESENT: dry, warm Results Laboratory Results: 11/23/18 04:22 11/23/18 04:22 11/23/18 11/23/18 04:22 04:22 WBC 7.0 RBC 3.66 L Hgb 11.8 L Hct 34.0 L MCV 93 MCH 32.3 MCHC 34.7 RDW 13.1 Plt Count 200 Seg Neutrophils % 64.2 Sodium 139.9 Potassium 4.1 Chloride 107 Carbon Dioxide 26 Anion Gap 7 BUN 10 Creatinine 0.76 Est GFR ( Amer) > 60 Glucose 87 Calcium 8.9 11/20/18 14:40 Troponin I < 0.012 Impressions: Chest X-Ray 11/20/18 13:40 IMPRESSION: Hyperexpansion. No acute findings in the chest. Qualifiers - * PATIENT BEING DISCHARGED WITH ANY OF THE FOLLOWING DIAGNOSIS: No Acute Heart Failure - Is this a Heart Failure Patient?: No Plan Time Spent: Greater than 30 Minutes
== END 2018-11-23 12:12 | disposition home or self-care (01) ==
LOC: ER 13:14 → INTOOBSV 16:59 → EH 16:59 → 4N 20:24
PROVIDERS: ADMIT Internal Medicine; ATTEND Internal Medicine
DX: A77.0 Spotted fever due to Rickettsia rickettsii (principal); R51 Headache; F17.200 Nicotine dependence, unspecified, uncomplicated; M19.90 Unspecified osteoarthritis, unspecified site; R63.4 Abnormal weight loss; R53.1 Weakness; R07.9 Chest pain, unspecified; Z98.890 Other specified postprocedural states; M50.90 Cervical disc disorder, unspecified, unspecified cervical region; Z79.899 Other long term (current) drug therapy; Z79.891 Long term (current) use of opiate analgesic; Z82.49 Family history of ischemic heart disease and other diseases of the circulatory system
CPT/HCPCS: 93005; 99285; 96361; 96375; 96365; 36415 ×4; 87040; 83735; 84100; 84443; 85025 ×4; 85610; 85730; 80048 ×3; 80053; 81001; 84484; 83605; 71045; 93010; G0378 ×3; A9270 ×11; J3490 ×4; J1885 ×3; J2270 ×4; J1650 ×3; J2405 ×4; J7060 ×4; J7030 ×4

== ENCOUNTER → 2019-11-08 | Outpatient (CLI) | payer MEDICARE ==
--- NOTE | 2019-11-08 12:53 | RADIOLOGY REPORT (SQ) ---
EXAM DESCRIPTION: MRI HEAD COMBO IMAGES COMPLETED DATE/TIME: 11/08/2019 12:34 pm REASON FOR STUDY: G44.84 PRIMARY EXERTIONAL HEADACHE G44.84 PRIMARY EXERTIONAL HEADACHE COMPARISON: None. TECHNIQUE: Multiplanar imaging includes noncontrasted T1, T2, FLAIR, and Diffusion with ADC map seq uences. Contrast enhanced T1 images. Images stored on PACS. CONTRAST TYPE AND DOSE: 10 mL Prohance. RENAL FUNCTION: Not indicated. ACR Type II contrast agent associated with few, if any, unconfounded cases of NSF LIMITATIONS: None. FINDINGS: ANATOMY: No anomalies. Normal vascular flow voids. Pituitary fossa normal. CSF SPACES: Normal size and contour. No hemorrhage. CEREBRUM: A few high-signal intensity lesions scattered throughout the white matter on FLAIR imaging with distribution suggesting chronic microvascular ischemic change. Sulci and gyri normal in size and contour. No evidence of hemorrhage, mass or extraaxial fluid collection. No enhancing lesions. POSTERIOR FOSSA: No signal alteration. No hemorrhage. No edema, masses or mass effect. Internal audit ory canals, cerebello-pontine angles, mastoids normal. DIFFUSION: Negative for acute or subacute infarction. ORBITS: No masses. Globes normal. PARANASAL SINUSES: No fluid levels. Mucosa normal. OTHER: No other significant finding. IMPRESSION: No acute findings. EVIDENCE OF ACUTE STROKE: NO. TECHNICAL DOCUMENTATION: JOB ID: [id number] 2010 [employer]- All Rights Reserved Reading location - IP/workstation name: [email or web address]
== END ==
LOC: RAD 11:03
PROVIDERS: ATTEND Family Medicine
DX: G44.84 Primary exertional headache (principal)
CPT/HCPCS: 70553; A9576

== ENCOUNTER → 2020-01-03 | Outpatient (CLI) | payer MEDICARE ==
--- NOTE | 2020-01-04 10:02 | RADIOLOGY REPORT (SQ) ---
EXAM DESCRIPTION: MRI RT UPPER JOINT WITHOUT IMAGES COMPLETED DATE/TIME: 01/03/2020 5:11 pm REASON FOR STUDY: M75.121 COMPLETE ROTATR-CUFF TEAR/RUPTR OF R SHOULDER, NOT TRAUMA M75.121 COMPLET E ROTATR-CUFF TEAR/RUPTR OF R SHOULDER, NOT T M77.11 LATERAL EPICONDYLITIS, RIGHT ELBOW COMPARISON: None. TECHNIQUE: Noncontrast non arthrogram MRI right shoulder images acquired and stored on PACS. Multipl rhett imaging to include fat sensitive sequences such as T1, water sensitive sequences such as FST2/ST IR, cartilage sensitive sequences such as FSPD/gradient-echo sequences. LIMITATIONS: None. FINDINGS: BONE MARROW AND CORTEX: No worrisome bone lesions or marrow replacement. No occult fractur es. JOINT OR BURSAL EFFUSION: Small glenohumeral joint effusion. Fluid in the subacromial/ subdeltoid bu rsa GLENO-HUMERAL ARTICULATION: Normal articulation. No subluxation. No cystic change. No osteophytes or cartilage loss. ACROMION AND AC JOINT: Type 2 acromion with mild bony spurring superiorly. ROTATOR CUFF AND INTERVAL: Full-thickness tear anterior half supraspinatus tendon, best shown on sagi ttal image 6 and coronal images 7-11. There is tendinopathy throughout the infraspinatus and subscapularis tendons without focal tear. No rotator interval tear. No rotator interval thickening to suggest adhesive capsulitis. LABRUM AND BICEPS LABRAL COMPLEX: Intra-articular long head biceps tendon is normal. There is a sm all superior labral tear without paralabral cyst on axial image 6 and sagittal image 14. REMAINDER OF LABRUM AND IGHL : No gross tear or paralabral cyst formation. Labral evaluation is less than optimal without joint distention. No thickening of IGHL to suggest adhesive capsulitis. PERIARTICULAR AND ADJACENT SOFT TISSUES: No masses or abnormal nodes. OTHER: No other significant finding. IMPRESSION: Full-thickness tear anterior supraspinatus tendon Suspect a tiny superior labral tear TECHNICAL DOCUMENTATION: JOB ID: [id number] [employer]- All Rights Reserved Reading location - IP/workstation name: [email or web address]-
--- NOTE | 2020-01-04 13:34 | RADIOLOGY REPORT (SQ) ---
EXAM DESCRIPTION: MRI RT UPPER JOINT WITHOUT IMAGES COMPLETED DATE/TIME: 01/03/2020 5:11 pm REASON FOR STUDY: M77.11 LATERAL EPICONDYLITIS, RIGHT ELBOW M75.121 COMPLETE ROTATR-CUFF TEAR/RUPTR OF R SHOULDER, NOT T M77.11 LATERAL EPICONDYLITIS, RIGHT ELBOW COMPARISON: None. TECHNIQUE: Non contrasted non arthrogram MRI right elbow images acquired and stored on PACS. Multip lanar images to include fat sensitive sequences as T1, fluid sensitive sequences as T2/STIR, cartilag e sensitive sequences as FSPD, and gradient echo sequences. LIMITATIONS: None. FINDINGS: BONE MARROW: No alteration of signal to suggest marrow replacement or edema. No occult fra cture. No large osteophytes. JOINT EFFUSION: None noted. No loose bodies. ARTICULAR SURFACES: Normal. MEDIAL COLLATERAL LIGAMENT COMPLEX: Intact without edema or tear. MEDIAL EPICONDYLE AND COMMON FLEXOR TENDON: No tendinopathy. No partial or full-thickness tear. LATERAL COLLATERAL LIGAMENT: Intact without edema or tear. LATERAL EPICONDYLE AND COMMON EXTENSOR TENDON: Very mild proximal common extensor tendinopathy, with increased signal on coronal image 14 and 15, axial images 9-12 of the proximal attachment. No partia l or full-thickness tear. No reactive marrow edema in the lateral epicondyle LATERAL ULNAR COLLATERAL LIGAMENT: Intact without evidence for tear. BICEPS TENDON: Intact. No partial or full-thickness tendon tear. No muscle edema. TRICEPS TENDON: Intact. ULNAR NERVE: Well-visualized without edema or encroachment. ADJACENT SOFT TISSUES: No masses or edema. OTHER: No other significant finding. IMPRESSION: Mild proximal common extensor tendinopathy. No full-thickness tear TECHNICAL DOCUMENTATION: JOB ID: [id number] 2010 [employer]- All Rights Reserved Reading location - IP/workstation name: [email or web address]
== END ==
LOC: RAD 15:29
PROVIDERS: ATTEND Orthopaedic Surgery
DX: M75.121 Complete rotator cuff tear or rupture of right shoulder, not specified as traumatic (principal)